=== PATIENT | male | born 1990 | race Caucasian/White ===

== ENCOUNTER 2021-05-15 20:27 | Inpatient (IN) | payer OTHER ==
[~2021-05-15] VITALS: Ht 170.2 cm; Wt 82.1 kg
[2021-05-15] MEDS: DOCUSATE SODIUM 100MG CAPSULE PO SCH (21:00)
[2021-05-15] MEDS ORDERED: NS 1,000 ML IV ONE (21:10)
[2021-05-15] MEDS ORDERED: ONDANSETRON 4MG/2ML VIAL IV ONE ×2 (21:10→23:00)
--- NOTE | 2021-05-15 21:52 | REPVR ---
PROCEDURE INFORMATION: Exam: CT Abdomen And Pelvis Without Contrast Exam date and time: 05/15/2021 9:15 PM Age: 31 years old Clinical indication: Vomiting; Abdominal pain; Generalized; Additional info: Gen abd pain, vomiting TECHNIQUE: Imaging protocol: Computed tomography of the abdomen and pelvis without contrast. Radiation optimization: All CT scans at this facility use at least one of these dose optimization techniques: automated exposure control; mA and/or kV adjustment per patient size (includes targeted exams where dose is matched to clinical indication); or iterative reconstruction. COMPARISON: No relevant prior studies available. FINDINGS: Mediastinal space: Thickened wall of the distal esophagus may be secondary to the presence of a hiatal hernia although clinical correlation and further evaluation to exclude distal esophageal thickening of any etiology suggested. Liver: Normal. No mass. Gallbladder and bile ducts: Normal. No calcified stones. No ductal dilation. Pancreas: Normal. No ductal dilation. Spleen: Normal. No splenomegaly. Adrenal glands: Normal. No mass. Kidneys and ureters: Normal. No hydronephrosis. Stomach and bowel: There is increased feces throughout the colon consistent with constipation. Impacted feces in the rectum. No evidence of stercoral colitis. Appendix: No evidence of appendicitis. Intraperitoneal space: Unremarkable. No free air. No significant fluid collection. Vasculature: Unremarkable. No abdominal aortic aneurysm. Lymph nodes: Unremarkable. No enlarged lymph nodes. Urinary bladder: Dilated urinary bladder. Clinical correlation to exclude bladder outlet obstruction suggested. Reproductive: Unremarkable as visualized. Bones/joints: Unremarkable. No acute fracture. Soft tissues: Unremarkable. IMPRESSION: 1. There is increased feces throughout the colon consistent with constipation. Impacted feces in the rectum. No evidence of stercoral colitis. 2. Thickened wall of the distal esophagus may be secondary to the presence of a hiatal hernia although clinical correlation and further evaluation to exclude distal esophageal thickening of any etiology suggested. 3. Dilated urinary bladder. Clinical correlation to exclude bladder outlet obstruction suggested. Electronically signed by: Gt Lim On 05/15/2021 21:52:25 PM
[2021-05-15 22:07] LABS: BASO % 0.2 % (0.0-1.0); EOS % 0.2 % (0.0-3.0); HEMATOCRIT 36.1 % (42.0-52.0); HEMOGLOBIN 11.7 g/dl (13.5-17.5); LYMPH # 1.3 10^3/uL (1.5-5.0); LYMPH % 10.7 % (24.0-44.0); MEAN CORPUSCULAR HEMOGLOBIN 27.1 pg (27.0-33.0); MEAN CORPUSCULAR HGB CONC 32.4 g/dl (32.0-36.5); MEAN CORPUSCULAR VOLUME 83.6 fl (80.0-96.0); MONO # 0.4 10^3/uL (0.0-0.8); MONO % 3.5 % (2.0-8.0); NEUTROPHILS # 9.9 10^3/uL (1.5-8.5); PLATELET COUNT, AUTOMATED 387 10^3/uL (150-450); RED BLOOD COUNT 4.32 10^6/uL (4.30-6.10); WHITE BLOOD COUNT 11.7 10^3/uL (4.0-10.0)
[2021-05-15] MEDS ORDERED: LABETALOL 100MG/20ML VIAL IV STA (22:27)
[2021-05-15 22:44] LABS: ALBUMIN 3.4 GM/DL (3.2-5.2); BILIRUBIN,DIRECT 0.1 MG/DL (0.0-0.2); BILIRUBIN,TOTAL 0.2 MG/DL (0.2-1.0); CALCIUM LEVEL 9.2 MG/DL (8.5-10.1); CREATININE FOR GFR 4.87 MG/DL (0.70-1.30); GLOMERULAR FILTRATION RATE 14.7 (>60); POTASSIUM SERUM 6.2 MEQ/L (3.5-5.1); TOTAL PROTEIN 7.6 GM/DL (6.4-8.2)
[2021-05-15 22:49] LABS: RSV AMPLIFICATION NEGATIVE (NEGATIVE)
[2021-05-15] MEDS ORDERED: DEXTROSE 50% 50 ML SYRINGE IV STA (22:59)
[2021-05-15] MEDS ORDERED: SOD POLYSTYRENE SULFONATE SUSP 15 GM/60 ML UD PO ONE ×2 (23:00→23:30)
[2021-05-15] MEDS ORDERED: HumuLIN R (REGULAR) INSULIN (NovoLIN R) **100U/ML** PER UNIT IV ONE (23:00)
[2021-05-15] MEDS ORDERED: CALCIUM GLUCONATE 1,000 MG in D5W MINI-BAG PLUS 100 ML IV ONE (23:00)
[2021-05-15] MEDS ORDERED: MAALOX 30 ML SUSP *UDC PO PRN (23:20)
[2021-05-15] MEDS ORDERED: MOM 30ML SUSPENSION UDC PO PRN (23:20)
[2021-05-15] MEDS ORDERED: DEXTROSE 50% 50 ML SYRINGE IV PRN (23:20)
[2021-05-15] MEDS ORDERED: ONDANSETRON 4MG/2ML VIAL IV PRN (23:20)
[2021-05-15] MEDS ORDERED: ACETAMINOPHEN TAB 650MG DOSE (2X325MG) PO PRN (23:20)
[2021-05-15] MEDS ORDERED: GLUCAGON INJ 1MG VIAL SC PRN (23:20)
[2021-05-15] MEDS ORDERED: GLUCOSE 4GM CHEW TABLET PO PRN (23:20)
[2021-05-15] MEDS ORDERED: PANTOPRAZOLE 40MG VIAL (C9113 PER 1) IV ONE (23:30)
[2021-05-15] MEDS ORDERED: OMEP-221 PO (23:37)
[2021-05-15] MEDS ORDERED: METO10TA2 PO (23:37)
[2021-05-15] MEDS ORDERED: BUPR-69 PO (23:37)
[2021-05-15] MEDS ORDERED: VYVA50CA4 PO (23:37)
[2021-05-15] MEDS ORDERED: SODI650T PO (23:37)
[2021-05-15] MEDS ORDERED: AMLO1TAB25 PO (23:37)
[2021-05-15] MEDS ORDERED: ADME100I INJ (23:37)
[2021-05-15] MEDS ORDERED: CLON0.5T2 PO (23:37)
[2021-05-15] MEDS ORDERED: HYDR1CAP25 PO (23:37)
[2021-05-15] MEDS ORDERED: MELA10CA PO (23:37)
[2021-05-15] MEDS ORDERED: HOME MED LIST COMPLETE! XX SCH (23:40)
--- NOTE | 2021-05-15 23:47 | HPEPDOC ---
General Date of Admission Date of Service: May 15, 2021 Attending Physician: MAGGIE FLANNERY MD Chief Complaint The patient is a 31-year-old male admitted with a reason for visit of Vomiting. Source: Patient Exam Limitations: No limitations Timing/Duration: Other Severity: Moderate (Today) Associated Symptoms: Vomiting History of Present Illness 31 years old [id number] male with past medical history of type 1 diabetes mellitus and hypertension, CKD stage IV came to visit his sister here but had forgotten to bring his medication including insulin and has been running without insulin and his meds since yesterday. Patient has a insulin pump but she has not used it as he has no insulin in it. Patient developed nausea and vomiting few hours prior to admission no abdominal pain no chest pain no shortness of breath. We were called by ED physicians for admission with persistent nausea vomiting. Home Medications Scheduled Amlodipine Besylate (Amlodipine Besylate) 10 Mg Tablet, 10 MG PO DAILY, (Repor elzbieta) Bupropion HCl (Bupropion HCl) 100 Mg Tablet, 100 MG PO DAILY, (Reported) Clonazepam (Clonazepam) 0.5 Mg Tablet, 0.5 MG PO QID, (Reported) Hydroxyzine Pamoate (Hydroxyzine Pamoate) 25 Mg Capsule, 25 MG PO QHS, (Reported) Insulin Lispro (Admelog) 100 Unit/1 Ml Vial, 1 DOSE INJ ASDIRECTED, (Reported) pt has pump Lisdexamfetamine Dimesylate (Vyvanse) 50 Mg Capsule, 50 MG PO DAILY, (Reported) Metoclopramide HCl (Metoclopramide HCl) 10 Mg Tablet, 10 MG PO BID, (Reported) Omeprazole (Omeprazole) 40 Mg Capsule.dr, 40 MG PO DAILY, (Reported) Sodium Bicarbonate (Sodium Bicarbonate) 650 Mg Tablet, 650 MG PO BID, (Reported) Scheduled PRN Melatonin (Melatonin) 10 Mg Capsule, 10 MG PO QPM PRN for SLEEP, (Reported) Allergies Coded Allergies: No Known Allergies (Unverified , 05/15/21) Past Medical History Medical History Type 1 diabetes mellitus, hypertension, CKD stage IV Surgical History None Family History No significant family history Social History * Smoker: other (Patient vapes but does not smoke) Alcohol: Denies Drugs: denies A-FIB/CHADSVASC A-FIB History Current/History of A-Fib/PAF?: No Review of Systems Constitutional: Denies: Chills, Fever, Malaise, Night Sweats, Weakness, Fatigue, Weight Loss, Lethargy, Other Eyes: Denies: Pain, Vision change, Conjunctivae inflammation, Eyelid inflammation, Redness, Other ENT: Denies: Head Aches, Ear Pain, Dysphagia, Sinus Congestion, Post Nasal Drip, Sore Throat, Epistaxis, Other Symptoms Skin: Denies: Rash, Lesions, Jaundice, Bruising, Itching, Dry, Breakdown, Nail Changes, Other Pulmonary: Denies: Dyspnea, Cough, Pleuritic Chest Pain, Other Symptoms Cardiovascular: Denies: Chest Pain, Palpitations, Orthopnea, Paroxysmal Noc. Dyspnea, Edema, Lt Headedness, Other Symptoms Gastrointestinal: Reports: Nausea, Vomiting Genitourinary: Denies: Dysuria, Frequency, Incontinence, Hematuria, Retention, Other Symptoms Hematologic: Denies: Bruising, Bleeding Excessively, Petecchia, Purpura, Enlarged Lymph Nodes, Other Hematologic Endocrine: Denies: Polydipsia, Polyphagia, Polyuria, Heat Intolerance, Cold Intolerance, Other Endocrine Sx Musculoskeletal: Denies: Neck Pain, Back Pain, Shoulder Pain, Arm Pain, Hand Pain, Leg Pain, Foot Pain, Joint Pain, Muscle Pain, Spasms, Other Symptoms Neurological: Denies: Weakness, Numbness, Incoordination, Change in speech, Confusion, Seizures, Other Symptoms Psych: Denies: Mood Normal, Anxiety, Depression, Memory Issues, Thoughts of Self Harm, Anger, Thoughts of Harming Other, Other Psych Physical Examination General Exam: Positive: Alert, Cooperative Eye Exam: Positive: PERRLA Neck Exam: Positive: Supple Chest Exam: Positive: Clear to auscultation Heart Exam: Positive: Rate Normal, Normal S1, Normal S2 Abdomen Exam: Positive: Normal bowel sounds, Soft Extremity Exam: Positive: Other (No clubbing cyanosis edema) Skin Exam: Positive: Nl turgor and temperature Neuro Exam: Positive: Strength at 5/5 X4 ext, Sensation Intact, Cranial Nerves 3-12 NL Psych Exam: Positive: Mental status NL, Oriented x 3 Vital Signs Vital Signs Date Time Temp Pulse Resp B/P (MAP) Pulse Ox O2 Delivery O2 Flow Rate FiO2 05/15/21 23:22 93 203/123 05/15/21 22:22 20 95 Room Air 05/15/21 20:28 97.1 Laboratory Data Labs 24H Laboratory Tests 2 05/15/21 21:46: Immature Granulocyte % (Auto) 0.4, Neutrophils (%) (Auto) 85.0H, Lymphocytes (%) (Auto) 10.7L, Monocytes (%) (Auto) 3.5, Eosinophils (%) (Auto) 0.2, Basophils (%) (Auto) 0.2, Neutrophils # (Auto) 9.9H, Lymphocytes # (Auto) 1.3L, Monocytes # (Auto) 0.4, Eosinophils # (Auto) 0.0, Basophils # (Auto) 0.0, Nucleated Red Blood Cells % (auto) 0.0, Anion Gap 6L, Glomerular Filtration Rate 14.7L, Calcium Level 9.2, Total Bilirubin 0.2, Direct Bilirubin 0.1, Aspartate Amino Transf (AST/SGOT) 21, Alanine Aminotransferase (ALT/SGPT) 42, Alkaline Phosp hatase 133H, Total Protein 7.6, Albumin 3.4, Albumin/Globulin Ratio 0.8, Lipase 88, Coronavirus (COVID-19)(PCR) NEGATIVE, Influenza Type A (RT-PCR) NEGATIVE, Influenza Type B (RT-PCR) NEGATIVE, Respiratory Syncytial Virus (PCR) NEGATIVE 05/15/21 23:19: Bedside Glucose (Misc Panel) 139H CBC/BMP Laboratory Tests 05/15/21 21:46 Assessment/Plan 31 years old [id number] male with past medical history of type 1 diabetes mellitus and hypertension, CKD stage IV came to visit his sister here but had forgotten to bring his medication including insulin and has been running without insulin and his meds since yesterday. Patient has a insulin pump but she has not used it as he has no insulin in it. Patient developed nausea and vomiting few hours prior to admission no abdominal pain no chest pain no shortness of breath. We were called by ED physicians for admission with persistent nausea vomiting. On examination patient's temperature 93 degrees, respiratory rate of 20, blood pressure 210/102, heart rate of 81 and pulse ox is 95% on room air CBC is within normal range but electrolytes shows potassium 6.2 BUN 51 creatinine 4.[address] of the abdomen pelvis shows dilated urinary bladder, Covid negative, no EKG available #1 RITA on CKD stage IV #2 uncontrolled hypertension secondary to noncompliance #3 uncontrolled diabetes mellitus type 1 secondary to noncompliance #4 hyperkalemia secondary to RITA on CKD Patient received a bolus of normal saline 1000 cc in ED We will also start patient on normal saline 100 250 cc/h and measure ISRAEL's Straight cath has been ordered is a CT of the abdomen pelvis shows dilated urinary bladder most likely bladder neck obstruction Monitor intake and output, discussed with nursing in ED Patient also received calcium supplement in ED most likely secondary to hyperkalemia . Will request EKG secondary to hyperkalemia Kayexalate 30 g p.o. x1 Patient will be started on hydralazine 10 mg IV every 4 hours as needed for blood pressure control Fingerstick blood sugar every 4 hour with coverage Hold all p.o. meds until his renal functions normalized Nephrology consultation has been requested for further assistance in this complex case, N.p.o. except ice chips and meds Activity as tolerated DVT prophylaxis with heparin Problems (1) RITA (acute kidney injury) Status: Acute Plan / VTE VTE Prophylaxis Ordered?: Yes MAGGIE FLANNERY MD May 15, 2021 23:47
[2021-05-16 01:15] VITALS: BP 172/88
[2021-05-16] MEDS: NS 1,000 ML IV SCH ×3 (01:27→17:43)
[2021-05-16] MEDS: hydrALAZINE 20MG/ML 1ML VIAL (J0360 PER 20MG) IV SCH ×7 (01:47→23:37)
[2021-05-16] MEDS ORDERED: METOCLOPRAMIDE INJ 10MG/2ML VIAL (J2765 PER 1) IV ONE (01:55)
[2021-05-16] MEDS: HumaLOG INSULIN (NovoLOG) PER UNIT SC SCH ×3 (02:39→12:24)
[2021-05-16 04:00] VITALS: BP 139/76
[2021-05-16 05:23] LABS: CALCIUM LEVEL 8.5 MG/DL (8.5-10.1); CREATININE FOR GFR 4.96 MG/DL (0.70-1.30); GLOMERULAR FILTRATION RATE 14.4 (>60); POTASSIUM SERUM 6.2 MEQ/L (3.5-5.1)
[2021-05-16] MEDS ORDERED: NS 500 ML IV ONE (05:55)
[2021-05-16] MEDS: HEPARIN SOD (PORCINE) 5000UNITS/ML 1ML VIAL/SYRINGE SC SCH ×3 (06:01→21:00)
[2021-05-16] MEDS ORDERED: HumaLOG INSULIN (NovoLOG) PER UNIT SC SCH (07:30)
--- NOTE | 2021-05-16 07:50 | ECGEPIP ---
[facility] - ED Test Date: 2021-05-15 Pat Name: MEHREEN JONES Department: Room: - Gender: Male [employer] Worker: TAMIA : [id number] Requested By: ADILENE Whitt Order Number: [id number] Reading MD: Carmelina Doan Measurements Intervals [place] Rate: 90 P: 60 UT: 138 QRS: 62 QRSD: 76 T: 66 QT: 350 QTc: 428 Interpretive Statements Normal sinus rhythm No prior Electronically Signed on 05-16-2021 7:50:33 EST by Carmelina Doan
[2021-05-16] MEDS: clonazePAM 0.5 MG TAB PO SCH ×4 (07:51→20:31)
[2021-05-16 08:00] VITALS: BP 129/63
[2021-05-16] MEDS: METOCLOPRAMIDE 10 MG TAB PO SCH ×2 (08:02→20:31)
[2021-05-16] MEDS: OMEPRAZOLE 20 MG CAP PO SCH (08:02)
[2021-05-16] MEDS: DOCUSATE SODIUM 100MG CAPSULE PO SCH ×2 (08:02→20:32)
[2021-05-16 08:28] LABS: CHOLESTEROL RISK RATIO 3.15 (<5)
[2021-05-16 08:38] LABS: HEMOGLOBIN A1c 7.1 %
--- NOTE | 2021-05-16 08:48 | REP ---
INDICATION: RITA COMPARISON: None TECHNIQUE: Real time ellsworth scale ultrasound examination using curved array transducer. FINDINGS: Bilateral kidneys are mildly increased in parenchymal echotexture, but essentially normal in contour, size, and reniform shape. No hydronephrosis, nephrolithiasis, cystic or renal mass lesion. No perinephric fluid. Right kidney measures 10.5 x 4.6 x 5.7 cm. Left kidney measures 11.5 x 4.9 x 6.2 cm. Prostate gland measures 3.6 x 3.2 x 2.7 cm. The bladder is relatively normal. IMPRESSION: 1. Kidneys demonstrate mild increased parenchymal echogenicity raising the possibility of underlying renal disease. No hydronephrosis. <Electronically signed by Greg Martinez > 05/16/21 [id number]
[2021-05-16] MEDS: buPROPion 100 MG TAB PO SCH (09:19)
[2021-05-16 12:00] VITALS: BP 160/90
[2021-05-16] MEDS ORDERED: HumaLOG INSULIN (NovoLOG) PER UNIT SC PRN ×3 (13:20→17:50)
--- NOTE | 2021-05-16 13:23 | IPNPDOC ---
Date Seen The patient was seen on 05/16/21. Progress Note SUBJECTIVE: Received records from [facility] nephrology, Dr.S. Newton. Patient's baseline creatinine 2.93.2. Admits to nausea with vomiting. Nephrology here recommending continuous fluids. Denies chest pain, shortness of breath. OBJECTIVE: VITAL SIGNS: Please see below PHYSICAL EXAMINATION: VS: Please see below CONSTITUTIONAL: No acute distress, resting comfortably, AAO x 3 EYES: PERRLA, EOM intact HENT, MOUTH: Normocephalic, atraumatic, moist mucous membranes NECK: SUPPLE, no JVD, no lymphadenopathy, no carotid bruit CV: Regular rate and rhythm, S1S2 normal, no murmurs/rubs/gallops RESPIRATORY: Clear to auscultation bilaterally, no rales/rhonchi/wheezes GI: BS positive in 4 quadrants, soft, nontender, nondistended, no rebound or guarding, no organomegaly : Deferred MUSCULOSKELETAL: Normal ROM. No cyanosis, clubbing, swelling, joint deformity, extremity edema INTEGUMENTARY: Intact, no rashes, no lesions, no erythema NEUROLOGIC: Cranial Nerves II-XII are intact, no focal deficits PSYCHIATRIC: Mood and affect are normal CURRENT MEDICATIONS: Please see below LABORATORY DATA: Please see below IMAGING: Renal US: 1. Kidneys demonstrate mild increased parenchymal echogenicity raising the possibility of underlying renal disease. No hydronephrosis. CT abd/pelvis: 1. There is increased feces throughout the colon consistent with constipation. Impacted feces in the rectum. No evidence of stercoral colitis. 2. Thickened wall of the distal esophagus may be secondary to the presence of a hiatal hernia although clinical correlation and further evaluation to exclude distal esophageal thickening of any etiology suggested. 3. Dilated urinary bladder. Clinical correlation to exclude bladder outlet obstruction suggested. ASSESSMENT: 31 y/o M admitted for n/v likely 2/2 to gastroenteritis, RITA on CKD, dehydration. PLAN: RITA on CKD stage G4/A3 likely 2/2 to dehydration from gastroenteritis -Baseline Cr 2.9-3.2 -CKD 2/2 to diabetic nephropathy and hypertensive nephrosclerosis -Nephrology has seen patient, discussed plan in detail -C/w IVFs, follow labs daily, avoid nephrotoxic medications -Records from [place] nephrology office in chart Hyperkalemia likely 2/2 to worsening RITA -K 6.2 s/p kayexelate without improvement -C/w IVFs per nephrology -F/u repeat labs, telemetry Essential HTN -Uncontrolled 2/2 to noncompliance -BP 129-160 systolic mmHg currently -C/w home meds, monitor closely while on IVFs Uncontrolled diabetes mellitus type 1 2/2 to noncompliance -Hx of noncompliance -Restarting insulin pump today -F/u BS, CC diet, FS DVT px -Heparin SC DISPOSITION: Inpatient status. Nephrology consulted. Full Code. VS, I&O, 24H, Fishbone Vital Signs/I&O Vital Signs Date Time Temp Pulse Resp B/P (MAP) Pulse Ox O2 Delivery O2 Flow Rate FiO2 05/16/21 12:00 97.4 107 17 160/90 (113) 98 Room Air I&O- Last 24 Hours up to 6 AM 05/16/21 06:00 Intake Total 1110 ml Output Total 1100 ml Balance 10 ml Laboratory Data 24H LABS Laboratory Tests 2 05/15/21 21:46: Immature Granulocyte % (Auto) 0.4, Neutrophils (%) (Auto) 85.0H, Lymphocytes (%) (Auto) 10.7L, Monocytes (%) (Auto) 3.5, Eosinophils (%) (Auto) 0.2, Basophils (%) (Auto) 0.2, Neutrophils # (Auto) 9.9H, Lymphocytes # (Auto) 1.3L, Monocytes # (Auto) 0.4, Eosinophils # (Auto) 0.0, Basophils # (Auto) 0.0, Nucleated Red Blood Cells % (auto) 0.0, Anion Gap 6L, Glomerular Filtration Rate 14.7L, Calcium Level 9.2, Total Bilirubin 0.2, Direct Bilirubin 0.1, Aspartate Amino Transf (AST/SGOT) 21, Alanine Aminotransferase (ALT/SGPT) 42, Alkaline Phosphatase 133H, Total Protein 7.6, Albumin 3.4, Albumin/Globulin Ratio 0.8, Lipase 88, Coronavirus (COVID-19)(PCR) NEGATIVE, Influenza Type A (RT-PCR) NEGATIVE, Influenza Type B (RT-PCR) NEGATIVE, Respiratory Syncytial Virus (PCR) NEGATIVE 05/15/21 23:19: Bedside Glucose (Misc Panel) 139H 05/16/21 00:04: Bedside Glucose (Misc Panel) 236H 05/16/21 02:21: Bedside Glucose (Misc Panel) 368H 05/16/21 03:31: Bedside Glucose (Misc Panel) 449H 05/16/21 04:11: Estimated Mean Plasma Glucose 157H, Hemoglobin A1c 7.1 05/16/21 04:13: Anion Gap 5L, Glomerular Filtration Rate 14.4L, Calcium Level 8.5, Triglycerides Level 46, Total Cholesterol 167, LDL Cholesterol 105H, Non-HDL Cholesterol (LDL + VLDL) 114, Total HDL Cholesterol 53, Cholesterol/HDL Ratio 3.150 05/16/21 06:03: Bedside Glucose (Misc Panel) 269H 05/16/21 07:53: Bedside Glucose (Misc Panel) 257H 05/16/21 08:57: Lactic Acid Level 2.1*H 05/16/21 09:04: Urine Color YELLOW, Urine Appearance CLEAR, Urine pH 7.0, Urine Specific [place] 1.013, Urine Protein 3+H, Urine Glucose (UA) 3+H, Urine Ketones TRACEH, Urine Bl ood NEGATIVE, Urine Nitrite NEGATIVE, Urine Bilirubin NEGATIVE, Urine Urobilinogen 0.2, Urine Leukocyte Esterase NEGATIVE, Urine WBC (Auto) 0, Urine RBC (Auto) 3, Urine Hyaline Casts (Auto) 0, Urine Bacteria (Auto) 1+H, Urine Squamous Epithelial Cells 0, Urine Sperm (Auto) 05/16/21 11:52: Bedside Glucose (Misc Panel) 249H CBC/BMP Laboratory Tests 05/15/21 21:46 05/16/21 04:13 Janelle Galindo MD May 16, 2021 13:23
--- NOTE | 2021-05-16 15:09 | CR ---
CONSULTATION DATE: 05/16/2021 REFERRING PHYSICIAN: Janelle Galindo MD REASON FOR CONSULTATION: Acute renal failure superimpose on chronic kidney disease and hyperkalemia. HISTORY OF PRESENT ILLNESS: Mr. Santana is a 31-year-old gentleman with known history of type 1 diabetes, hypertension and stage 4 of chronic kidney disease probably related to diabetic nephropathy. He is visiting his sister here in [place] area from [place] and ran out of insulin. His insurance is Medicaid of [place] which did not cover his insulin here so he could not get it. He presented to emergency room with recurrent vomiting for two days and was admitted last evening. His BUN was 51 and creatinine 4.87 on admission. His potassium level was 6.2. This morning, his creatinine went up to 4.9 and despite IV fluid hydration. A nephrology consultation was requested and patient is seen this morning on his bedside. PAST MEDICAL HISTORY: 1. Longstanding type 1 diabetes on insulin pump. 2. Hypertension. 3. Stage 4 of chronic kidney disease. PAST SURGICAL HISTORY: Unremarkable. HOME MEDICATIONS: 1. Amlodipine 10 mg daily. 2. Bupropion 100 mg daily. 3. Clonazepam 0.5 mg q.i.d. 4. Hydroxyzine 25 mg at bedtime. 5. Admelog insulin per insulin pump. 6. Vyvanse capsule 50 mg once a day. 7. Metoclopramide 10 mg b.i.d. 8. Omeprazole 40 mg daily. 9. Sodium bicarbonate 650 mg b.i.d. ALLERGIES: The patient has no known drug allergies. PERSONAL AND SOCIAL HISTORY: Patient does have history of vaping but denies any alcohol or drug use. FAMILY HISTORY: Negative for diabetes or end-stage renal disease. REVIEW OF SYSTEMS: Patient reports vomiting for a couple of days prior to admission. He is feeling better now, however, still has no appetite. He did not eat much. Ears, nose and throat are unremarkable. Cardiovascular system: Negative for chest pain or leg edema. He does have history of hypertension. Respiratory system: Negative for cough or hemoptysis. GI system is significant for recurrent vomiting and nausea. He denies any diarrhea or rectal bleeding. system: Negative for dysuria or hematuria. He denies any history of kidney stones. Musculoskeletal system negative for leg edema or significant arthritis. He does not use any NSAIDs. Endocrine system is significant for type 1 diabetes. There is no history of thyroid problems. Hematological system: Negative for any long-term anticoagulation or known anemia. Psychosocial system: Significant for anxiety and use of clonazepam in addition to bupropion. Skin is negative for rash or ulcers. Neurological system is negative for seizures or stroke. PHYSICAL EXAMINATION: The patient is awake and alert at the time of my visit. His temperature is 98.5 degrees Fahrenheit, heart is 98 per minute and respiratory rate 16 per minute. Blood pressure 131/80 mmHg and oxygen saturation 95% on room air. His head is atraumatic. Neck: Supple and without JVD or thyroid enlargement. Pupils equal and reactive to light and sclera is anicteric. Heart sounds are regular and somewhat tachycardic. Lungs clear to auscultation. Abdomen is soft and nontender. Bowel sounds are normal. Extremities without any cyanosis or clubbing. Bowel sounds are normal. There is no peripheral edema. Neurologically he is awake, alert and without any focal deficit. LABORATORY DATA: On admission, sodium 141, potassium 6.2, CO2 31, BUN 51 and creatinine 4.87. Glucose was 156. This morning, his blood sugar is 401, sodium 137, potassium 6.2. BUN 56 and creatinine 4.96. A lactic acid level is 2.1 and calcium 8.5. Urinalysis showed 3+ protein and 3+ glucose. Renal ultrasound is unremarkable without any hydronephrosis. Kidney size is normal. PROBLEMS: 1. Acute renal failure superimposed on chronic kidney disease. Patient has known history of stage 4 of chronic kidney disease with baseline serum creatinine about 3 mg per deciliter. Worsening kidney function is most likely related to prerenal azotemia and probably osmotic diuresis induced by hypoglycemia. He is being hydrated with IV fluids and I would recommend to increase the IV fluid to 150 mL per hour. The patient is also tolerating oral intake now and renal function is likely to improve over the next 24 hours. 2. Hyperkalemia. This is related to acute renal failure and hyperglycemia. His hyperkalemia is likely to improve as his urine output is improving. He has already received calcium gluconate and I do not feel that we need to give him any more calcium gluconate or Kayexalate. I feel that with IV fluids and control of hyperglycemia, his hyperkalemia will improve. His lactic acid will be repeated in the evening. 3. Metabolic acidosis. He does have his metabolic acidosis and has been on sodium bicarbonate prior to admission. He does not seem to have any metabolic acidosis at present. I will hold off on sodium bicarbonate for now until we repeat his chemistry. 4. Anemia. His anemia is mild, however likely to get worse with hydration and hemodilution. CBC should also be repeated tomorrow. 5. Hypertension. Blood pressure seems very well controlled and he can continue with amlodipine. He is not a suitable candidate for Carlos Alberto inhibitor or angiotensin receptor tanika in view of hyperkalemia. Thank you for involving me in the care of Mr. Santana. I will follow him along with you.
[2021-05-16 16:00] VITALS: BP 118/62
[2021-05-16 16:03] LABS: CALCIUM LEVEL 7.7 MG/DL (8.5-10.1); CREATININE FOR GFR 5.14 MG/DL (0.70-1.30); GLOMERULAR FILTRATION RATE 13.9 (>60); POTASSIUM SERUM 5.7 MEQ/L (3.5-5.1)
[2021-05-16] MEDS ORDERED: HumaLOG INSULIN (NovoLOG) PER UNIT SC ONE (17:50)
[2021-05-16 20:00] VITALS: BP 141/81
[2021-05-16] MEDS: hydrOXYzine 25 MG TAB PO SCH (20:31)
[2021-05-17] VITALS (7 sets, daily range): BP systolic 134–185; BP diastolic 68–100
[2021-05-17] MEDS: NS 1,000 ML IV SCH ×2 (01:38→12:15)
[2021-05-17] MEDS: hydrALAZINE 20MG/ML 1ML VIAL (J0360 PER 20MG) IV SCH ×2 (03:25→08:03)
[2021-05-17 04:43] LABS: HEMATOCRIT 30.1 % (42.0-52.0); MEAN CORPUSCULAR HEMOGLOBIN 27.8 pg (27.0-33.0); MEAN CORPUSCULAR HGB CONC 32.6 g/dl (32.0-36.5); MEAN CORPUSCULAR VOLUME 85.5 fl (80.0-96.0); PLATELET COUNT, AUTOMATED 334 10^3/uL (150-450); RED BLOOD COUNT 3.52 10^6/uL (4.30-6.10); WHITE BLOOD COUNT 10.8 10^3/uL (4.0-10.0)
[2021-05-17 04:46] LABS: HEMOGLOBIN 9.8 g/dl (13.5-17.5)
[2021-05-17 05:05] LABS: ALBUMIN 2.7 GM/DL (3.2-5.2); BILIRUBIN,TOTAL 0.2 MG/DL (0.2-1.0); CALCIUM LEVEL 8.1 MG/DL (8.5-10.1); CREATININE FOR GFR 4.56 MG/DL (0.70-1.30); GLOMERULAR FILTRATION RATE 15.9 (>60); POTASSIUM SERUM 5.4 MEQ/L (3.5-5.1); TOTAL PROTEIN 6.4 GM/DL (6.4-8.2)
[2021-05-17] MEDS: HEPARIN SOD (PORCINE) 5000UNITS/ML 1ML VIAL/SYRINGE SC SCH ×3 (05:09→21:03)
[2021-05-17] MEDS: OMEPRAZOLE 20 MG CAP PO SCH (08:02)
[2021-05-17] MEDS: clonazePAM 0.5 MG TAB PO SCH ×4 (08:02→21:02)
[2021-05-17] MEDS: buPROPion 100 MG TAB PO SCH (08:03)
[2021-05-17] MEDS: METOCLOPRAMIDE 10 MG TAB PO SCH ×2 (08:03→21:03)
[2021-05-17] MEDS: DOCUSATE SODIUM 100MG CAPSULE PO SCH ×2 (08:03→21:00)
--- NOTE | 2021-05-17 10:23 | IPNPDOC ---
Date Seen The patient was seen on 05/17/21. Progress Note SUBJECTIVE: Creatinine increased despite IV fluids and later came down this AM. Still hyperkalemic. Starting on hydralazine 3 times daily for uncontrolled BP. Nephrology to see later. Denies chest pain, shortness of breath. OBJECTIVE: VITAL SIGNS: Please see below PHYSICAL EXAMINATION: VS: Please see below CONSTITUTIONAL: No acute distress, resting comfortably, AAO x 3 EYES: PERRLA, EOM intact HENT, MOUTH: Normocephalic, atraumatic, moist mucous membranes NECK: SUPPLE, no JVD, no lymphadenopathy, no carotid bruit CV: Regular rate and rhythm, S1S2 normal, no murmurs/rubs/gallops RESPIRATORY: Clear to auscultation bilaterally, no rales/rhonchi/wheezes GI: BS positive in 4 quadrants, soft, nontender, nondistended, no rebound or guarding, no organomegaly : Deferred MUSCULOSKELETAL: Insulin pump in left upper thigh, normal ROM of all joints. No cyanosis, clubbing, swelling, joint deformity, extremity edema INTEGUMENTARY: Intact, no rashes, no lesions, no erythema NEUROLOGIC: Cranial Nerves II-XII are intact, no focal deficits PSYCHIATRIC: Mood and affect are normal CURRENT MEDICATIONS: Please see below LABORATORY DATA: Please see below IMAGING: Renal US: 1. Kidneys demonstrate mild increased parenchymal echogenicity raising the possibility of underlying renal disease. No hydronephrosis. CT abd/pelvis: 1. There is increased feces throughout the colon consistent with constipation. Impacted feces in the rectum. No evidence of stercoral colitis. 2. Thickened wall of the distal esophagus may be secondary to the presence of a hiatal hernia although clinical correlation and further evaluation to exclude distal esophageal thickening of any etiology suggested. 3. Dilated urinary bladder. Clinical correlation to exclude bladder outlet obstruction suggested. ASSESSMENT: 31 y/o M admitted for n/v likely 2/2 to gastroenteritis, RITA on CKD, dehydration. PLAN: RITA on CKD (2/2 to diabetic nephropathy and hypertensive nephrosclerosis) stage G4/A3 likely 2/2 to dehydration from gastroenteritis, advancing disease -Baseline Cr 2.9-3.2 -Creatinine currently 4.56 -CKD 2/2 to diabetic nephropathy and hypertensive nephrosclerosis -Nephrology has seen patient, discussed plan in detail -C/w IVFs for now, follow labs daily, avoid nephrotoxic medications -Records from [place] nephrology office in chart Hyperkalemia likely 2/2 to worsening RITA -K 5.4 this AM -On IVFs, f/u nephrology recommendations -F/u repeat labs, telemetry Uncontrolled HTN, chronic -BP 160-180 mmHg -S/p IV hydralazine overnight -Started on PO hydralazine TID, c/w amlodipine -Still on IVFs which is likely increasing pressure as well Uncontrolled diabetes mellitus type 1 2/2 to noncompliance -Hx of noncompliance -BS much improved after restarting insulin pump -F/u BS, CC diet, FS DVT px -Heparin SC DISPOSITION: Inpatient status. Nephrology consulted. Full Code. VS, I&O, 24H, Fishbone Vital Signs/I&O Vital Signs Date Time Temp Pulse Resp B/P (MAP) Pulse Ox O2 Delivery O2 Flow Rate FiO2 05/17/21 08:03 99 05/17/21 08:03 158/100 05/17/21 08:00 97.5 18 98 Room Air I&O- Last 24 Hours up to 6 AM 05/17/21 06:00 Intake Total 4150 ml Output Total 200 ml Balance 3950 ml Laboratory Data 24H LABS Laboratory Tests 2 05/16/21 11:52: Bedside Glucose (Misc Panel) 249H 05/16/21 13:52: Anion Gap 11, Glomerular Filtration Rate 13.9L, Lactic Acid Followup at 4 Hours 1.3, Calcium Level 7.7L 05/16/21 17:08: Bedside Glucose (Misc Panel) 249H 05/16/21 21:16: Bedside Glucose (Misc Panel) 167H 05/17/21 04:18: Nucleated Red Blood Cells % (auto) 0.0, Anion Gap 6L, Glomerular Filtration Rate 15.9L, Calcium Level 8.1L, Total Bilirubin 0.2, Aspartate Amino Transf (AST/SGOT) 17, Alanine Aminotransferase (ALT/SGPT) 33, Alkaline Phosphatase 111, Total Protein 6.4, Albumin 2.7#L, Albumin/Globulin Ratio 0.7 05/17/21 09:09: Bedside Glucose (Misc Panel) 214H CBC/BMP Laboratory Tests 05/16/21 13:52 05/17/21 04:18 Janelle Galindo MD May 17, 2021 10:23
[2021-05-17] MEDS ORDERED: FUROSEMIDE 40MG/4ML VIAL (J1940) IV ONE (11:15)
[2021-05-17] MEDS ORDERED: PATIROMER SORBITEX CALCIUM 8.4 GM POWDER PACKET (VELTASSA) PO ONE (12:00)
--- NOTE | 2021-05-17 14:19 | IPN ---
NEPHROLOGY PROGRESS NOTE DATE: 05/17/2021 SUBJECTIVE: Mr. Santana is seen this morning on his bedside. He is laying in his bed without any distress. His blood pressure has been somewhat high and intravenous (IV) fluid has been cut down. He is tolerating oral diet well. He denies any dyspnea or chest pain. PHYSICAL EXAMINATION: VITAL SIGNS: Temperature 97.5 degrees Fahrenheit, heart rate 103 per minute, respiratory rate 18 per minute, blood pressure 158/100 mmHg, oxygen saturation 98% on room air. HEAD: Atraumatic. NECK: Supple and without jugular venous distention (JVD) or thyroid enlargement. HEART SOUNDS: Tachycardic. LUNGS: Clear to auscultation. ABDOMEN: Soft and nontender. Bowel sounds are normal. EXTREMITIES: Without any cyanosis or clubbing. NEUROLOGIC: He has no focal deficit. LABORATORY DATA: Today's labs show WBC count 10.8, hemoglobin 9.8, hematocrit 30. Sodium 138, potassium 5.4, CO2 24, BUN 49, creatinine 4.56, glucose 179, calcium 8.1. PROBLEMS: 1. Acute kidney injury superimposed on chronic kidney disease. Kidney function slightly improved. He does not seem to have any evidence of dehydration and present and seems very well hydrated. I feel that he probably has very significant underlying chronic kidney disease. He did have enlarged and distended bladder on his CAT scan. I am going to ask the nursing staff to do a bladder scan for postvoid residual. He is tolerating oral intake well and IV fluid has been cut down. 2. Hypertension. Blood pressure is still somewhat high. He has been on amlodipine chronically and is already receiving it. He has received some hydralazine through the night for high blood pressure. I recommend low dose beta tanika and consider stopping hydralazine in view of tachycardia. One dose of Lasix 40 mg is being ordered to prevent any hypervolemia, as he is receiving IV fluids. I would even recommend to consider stopping his IV fluid now. 3. Hyperkalemia. Potassium level is slightly improved and likely to improve further with continued IV fluid. A dose of Lasix 40 mg is being ordered for this reason. 4. Anemia. He has mild anemia, most likely related to advanced chronic kidney disease. 5. Diabetes. His blood sugars are much better now. He should continue with his insulin pump at discharge. DISPOSITION: I have discussed with the patient at length about his prison care and potential need for dialysis and transplant down the road. Yesterday he told me that his oil process stillman has not discussed dialysis with him; however, today he did say that oil process stillman has discussed with him the potential need for peritoneal dialysis. I have advised him to contact his oil process stillman right away as soon as he gets back home to [place] and get ready to start dialysis in the near future.
[2021-05-17] MEDS ORDERED: **hydrALAZINE** 10 MG TAB PO SCH (16:00)
[2021-05-17] MEDS: METOPROLOL TART 25 MG TABLET PO SCH (21:03)
[2021-05-17] MEDS: hydrOXYzine 25 MG TAB PO SCH (21:03)
[2021-05-18] VITALS: BP 135/77
[2021-05-18 04:00] VITALS: BP 132/74
[2021-05-18 04:54] LABS: HEMATOCRIT 29.4 % (42.0-52.0); HEMOGLOBIN 9.4 g/dl (13.5-17.5); MEAN CORPUSCULAR HEMOGLOBIN 26.8 pg (27.0-33.0); MEAN CORPUSCULAR VOLUME 83.8 fl (80.0-96.0); PLATELET COUNT, AUTOMATED 318 10^3/uL (150-450); RED BLOOD COUNT 3.51 10^6/uL (4.30-6.10); WHITE BLOOD COUNT 7.7 10^3/uL (4.0-10.0)
[2021-05-18] MEDS: HEPARIN SOD (PORCINE) 5000UNITS/ML 1ML VIAL/SYRINGE SC SCH (05:05)
[2021-05-18 05:21] LABS: ALBUMIN 2.6 GM/DL (3.2-5.2); BILIRUBIN,TOTAL 0.1 MG/DL (0.2-1.0); CALCIUM LEVEL 7.9 MG/DL (8.5-10.1); CREATININE FOR GFR 4.36 MG/DL (0.70-1.30); GLOMERULAR FILTRATION RATE 16.7 (>60); POTASSIUM SERUM 5.3 MEQ/L (3.5-5.1); TOTAL PROTEIN 5.9 GM/DL (6.4-8.2)
[2021-05-18 08:00] VITALS: BP 166/93
[2021-05-18] MEDS ORDERED: PATIROMER SORBITEX CALCIUM 8.4 GM POWDER PACKET (VELTASSA) PO ONE (09:00)
[2021-05-18] MEDS: METOCLOPRAMIDE 10 MG TAB PO SCH (09:00)
[2021-05-18] MEDS: DOCUSATE SODIUM 100MG CAPSULE PO SCH (09:00)
[2021-05-18] MEDS: OMEPRAZOLE 20 MG CAP PO SCH (09:00)
[2021-05-18] MEDS: buPROPion 100 MG TAB PO SCH (09:00)
[2021-05-18 09:01] VITALS: BP 166/93
[2021-05-18] MEDS: METOPROLOL TART 25 MG TABLET PO SCH (09:01)
[2021-05-18] MEDS: clonazePAM 0.5 MG TAB PO SCH ×2 (09:01→12:19)
[2021-05-18] MEDS ORDERED: METO1TAB87 PO (11:03)
--- NOTE | 2021-05-18 14:29 | IPN ---
NEPHROLOGY PROGRESS NOTE DATE: 05/18/2021 SUBJECTIVE: Mr. Santana is seen this morning on his bedside. He is feeling well and denies any nausea, vomiting, dyspnea or chest pain. His I.V. fluid has been stopped. PHYSICAL EXAMINATION: Temperature 98.3 degrees Fahrenheit, heart rate 84 per minute and respiratory rate 18 per minute. Blood pressure 166/67 mmHg and oxygen saturation 99% on room air. Head: Atraumatic. Neck: Supple and without JVD or thyroid enlargement. Heart: Sounds are regular and without a pericardial friction rub. Lungs: Clear to auscultation. Abdomen: Soft and nontender and bowel sounds are normal. Extremities: Without any cyanosis or clubbing. Neurologically: He is awake and without any focal deficit. LABORATORY DATA: Today's labs show: WBC count 7.7, hemoglobin 9.4, hematocrit 29.4. Sodium 137, potassium 5.3, CO2 24, BUN 48, creatinine 4.36, glucose 266 and calcium 7.9. PROBLEMS/PLAN: 1. Acute kidney injury superimposed on chronic kidney disease: Slight improvement in kidney function is noticed. She does not have any overt systemic symptoms and there is no emergent indication for dialysis. I have discussed with the patient and explained to him about potential need for dialysis in the near future. He will need to see his passenger service agent right away when he gets back to his home State of [place]. 2. Hyperkalemia: His potassium level has improved significantly and now he has only mild hyperkalemia. We will give him 1 more dose of Veltassa 16.8 grams today. 3. Hypertension: Blood pressure still somewhat high. His medications have been adjusted and now he is not receiving I.V. fluid. This will hopefully help to get his blood pressure under control. He will need again to follow up with his passenger service agent in his home town and get his medications adjusted if needed. 4. Anemia most likely anemia of chronic kidney disease: No urgent intervention needed. 5. Diabetes: Patient was admitted with hyperglycemia and nausea and vomiting. He ran out of insulin. Now he can get his insulin and resume his insulin pump. He should follow up with his primary care physician as soon as she gets back home.
--- NOTE | 2021-05-18 20:55 | DS.PDOC ---
Discharge Summary General Date of Admission May 15, 2021 at 23:19 Date of Discharge 05/18/21 Attending Physician: Janelle Galindo MD Discharge Summary PROCEDURES PERFORMED DURING STAY: None ADMITTING DIAGNOSES: DAWIT on CKD (2/2 to diabetic nephropathy and hypertensive nephrosclerosis) stage G4/A3 likely 2/2 to dehydration from gastroenteritis, advancing disease Hyperkalemia likely 2/2 to worsening DAWIT Uncontrolled HTN, chronic Uncontrolled diabetes mellitus type 1 2/2 to noncompliance DISCHARGE DIAGNOSES: DAWIT on CKD (2/2 to diabetic nephropathy and hypertensive nephrosclerosis) stage G4/A3 likely 2/2 to dehydration from gastroenteritis, advancing disease Hyperkalemia likely 2/2 to worsening DAWIT Uncontrolled HTN, chronic Uncontrolled diabetes mellitus type 1 2/2 to noncompliance COMPLICATIONS/CHIEF COMPLAINT: [place] - Acute Kidney Injury. HISTORY OF PRESENT ILLNESS: 31 years old [id number] male with past medical history of type 1 diabetes mellitus and hypertension, CKD stage IV came to visit his sister here but had forgotten to bring his medication including insulin and has been running without insulin and his meds since yesterday. Patient has a insulin pump but she has not used it as he has no insulin in it. Patient developed nausea and vomiting few hours prior to admission no abdominal pain no chest pain no shortness of breath. We were called by ED physicians for admission with persistent nausea vomiting. HOSPITAL COURSE: During the patient's hopsitalization, the following issues were addressed: DAWIT on CKD (2/2 to diabetic nephropathy and hypertensive nephrosclerosis) stage G4/A3 likely 2/2 to dehydration from gastroenteritis, advancing disease -Baseline Cr 2.9-3.2 -Creatinine currently 4.36 -CKD 2/2 to diabetic nephropathy and hypertensive nephrosclerosis -Nephrology has seen patient, discussed plan in detail -Stopped IVFs -Records from [place] nephrology office were received. Discussed the case with Dr. Lorenzo Newton who will see patient in the office on 05/21/21 after discharge. A prescription with the labs including CMP, CBC, ferritin, transferritin, TIBC, iron, 25 hydroxy vitamin D, magnesium, phosphorus, intact PTH, urine analysis, urine protein to creatinine ratio, microalbumin to creatinine ratio was given to patient at discharge. He is advised to go to [facility] to get these done within the next 24 hours after discharge so his theatre arts professor will have the results available on the next visit. Our theatre arts professor also agree with the plan. Hyperkalemia likely 2/2 to worsening DAWIT -K 5.3 this AM -Received second dose of Veltassa this morning. -Close follow-up after discharge with nephrology group mentioned above Uncontrolled HTN, chronic -BP better controlled -S/p IV hydralazine overnight -Continue with amlodipine and metoprolol twice daily. Metoprolol prescription sent to his nephrology group to enter with the [place] [facility]. Uncontrolled diabetes mellitus type 1 2/2 to noncompliance -Hx of noncompliance -BS much improved after restarting insulin pump DISCHARGE MEDICATIONS: Please see below. ALLERGIES: Please see below. PHYSICAL EXAMINATION ON DISCHARGE: VS: Please see below CONSTITUTIONAL: No acute distress, resting comfortably, AAO x 3 EYES: PERRLA, EOM intact HENT, MOUTH: Normocephalic, atraumatic, moist mucous membranes NECK: SUPPLE, no JVD, no lymphadenopathy, no carotid bruit CV: Regular rate and rhythm, S1S2 normal, no murmurs/rubs/gallops RESPIRATORY: Clear to auscultation bilaterally, no rales/rhonchi/wheezes GI: BS positive in 4 quadrants, soft, nontender, nondistended, no rebound or guarding, no organomegaly : Deferred MUSCULOSKELETAL: Insulin pump in left upper thigh, normal ROM of all joints. No cyanosis, clubbing, swelling, joint deformity, extremity edema INTEGUMENTARY: Intact, no rashes, no lesions, no erythema NEUROLOGIC: Cranial Nerves II-XII are intact, no focal deficits PSYCHIATRIC: Mood and affect are normal LABORATORY DATA: Please see below. IMAGING: Renal US: 1. Kidneys demonstrate mild increased parenchymal echogenicity raising the possibility of underlying renal disease. No hydronephrosis. CT abd/pelvis: 1. There is increased feces throughout the colon consistent with constipation. Impacted feces in the rectum. No evidence of stercoral colitis. 2. Thickened wall of the distal esophagus may be secondary to the presence of a hiatal hernia although clinical correlation and further evaluation to exclude distal esophageal thickening of any etiology suggested. 3. Dilated urinary bladder. Clinical correlation to exclude bladder outlet obstruction suggested. ACTIVITY: As tolerated DIET: renal, consistent carb DISPOSITION: 01 Home, Self-Care. DISCHARGE INSTRUCTIONS / ITEMS TO FOLLOWUP ON ON OUTPATIENT: 1. Follow up with Dr. Lorenzo Newton, nephrology, 05/21/21 @ 12 PM. 2. Please take script for metoprolol immediately to pharmacy to fill. 3. Also, per Dr. Newton, you will need to go to a nearby [facility] within 24 hours after discharge to get the necessary labs done so the results will be available for them to review on your next appointment. 4. If increased nausea, vomiting, heart palpitations, lightheadedness, abdominal pain please go to ER immediately. TIME SPENT ON DISCHARGE: 35 minutes. Vital Signs/I&Os Vital Signs Date Time Temp Pulse Resp B/P (MAP) Pulse Ox O2 Delivery O2 Flow Rate FiO2 05/18/21 09:01 84 166/93 05/18/21 08:00 98.3 18 99 Room Air I&O- Last 24 Hours up to 6 AM 05/18/21 06:00 Intake Total 2670 ml Output Total 2450 ml Balance 220 ml Laboratory Data Labs 24H Laboratory Tests 2 05/17/21 21:52: Bedside Glucose (Misc Panel) 254H 05/18/21 04:28: Nucleated Red Blood Cells % (auto) 0.0, Anion Gap 5L, Glomerular Filtration Rate 16.7L, Calcium Level 7.9L, Total Bilirubin 0.1L, Aspartate Amino Transf (AST/S GOT) 14, Alanine Aminotransferase (ALT/SGPT) 28, Alkaline Phosphatase 103, Total Protein 5.9L, Albumin 2.6L, Albumin/Globulin Ratio 0.8 CBC/BMP Laboratory Tests 05/18/21 04:28 FSBS Laboratory Tests Test 05/17/21 21:52 Range/Units Bedside Glucose (Misc Panel) 254 70-105 MG/DL Discharge Medications Scheduled Amlodipine Besylate (Amlodipine Besylate) 10 Mg Tablet, 10 MG PO DAILY, (Reported) Bupropion HCl (Bupropion HCl) 100 Mg Tablet, 100 MG PO DAILY, (Reported) Clonazepam (Clonazepam) 0.5 Mg Tablet, 0.5 MG PO QID, (Reported) Hydroxyzine Pamoate (Hydroxyzine Pamoate) 25 Mg Capsule, 25 MG PO QHS, (Reported) Insulin Lispro (Admelog) 100 Unit/1 Ml Vial, 1 DOSE INJ ASDIRECTED, (Reported) pt has pump Lisdexamfetamine Dimesylate (Vyvanse) 50 Mg Capsule, 50 MG PO DAILY, (Reported) Metoclopramide HCl (Metoclopramide HCl) 10 Mg Tablet, 10 MG PO BID, (Reported) Metoprolol Tartrate (Metoprolol Tartrate) 25 Mg Tablet, 25 MG PO BID Omeprazole (Omeprazole) 40 Mg Capsule.dr, 40 MG PO DAILY, (Reported) Sodium Bicarbonate (Sodium Bicarbonate) 650 Mg Tablet, 650 MG PO BID, (Reported) Scheduled PRN Melatonin (Melatonin) 10 Mg Capsule, 10 MG PO QPM PRN for SLEEP, (Reported) Allergies Coded Allergies: No Known Allergies (Unverified , 05/15/21) Janelle Galindo MD May 18, 2021 20:55
== END 2021-05-18 12:48 | disposition home or self-care (01) | DRG 468 ==
LOC: M ED 20:27 → M ED INP 23:19 → ENRESERV 05-16 00:38 → M PCU 05-16 01:15
PROVIDERS: ADMIT Internal Medicine; ATTEND Internal Medicine
DX: E10.21 Type 1 diabetes mellitus with diabetic nephropathy (principal); E87.2 Acidosis; N17.9 Acute kidney failure, unspecified; E87.5 Hyperkalemia; N18.4 Chronic kidney disease, stage 4 (severe); I12.9 Hypertensive chronic kidney disease with stage 1 through stage 4 chronic kidney disease, or unspecified chronic kidney disease; Z91.14 Patient's other noncompliance with medication regimen; E86.0 Dehydration; Z79.4 Long term (current) use of insulin; Z79.899 Other long term (current) drug therapy; D63.1 Anemia in chronic kidney disease; K52.9 Noninfective gastroenteritis and colitis, unspecified